=== PATIENT | male | born 1990 | race Caucasian/White ===

== ENCOUNTER 2024-03-06 00:17 | Emergency (ER) | payer OTHER, SELFPAY ==
--- NOTE | 2024-03-06 00:22 | ED.GENADULT ---
HPI - General Adult General Chief complaint: Extremity Injury, Upper Stated complaint: finger injury Time Seen by Provider: 03/06/24 00:21 Source: patient Mode of arrival: Ambulatory Limitations: no limitations History of Present Illness HPI narrative: Patient is a 33-year-old male here for evaluation of a left index finger injury. Patient states he fell while hiking in upon catching himself with the fall sustained an injury to the left index finger. Has had pain and swelling since then. Related Data Allergies Allergy/AdvReac Type Severity Reaction Status Date / Time No Known Drug Allergies Allergy Verified 03/06/24 00:34 Review of Systems Constitutional Constitutional: Reports system reviewed and no additional complaints, except as documented Musculoskeletal Musculoskeletal: Reports system reviewed and no additional complaints, except as documented Integumentary/Breasts Skin/Breast: Reports system reviewed and no additional complaints, except as documented Patient History Social History Smoking Status: Never smoker Exam Initial Vital Signs Initial Vital Signs: Vital Signs Temperature 97.7 F 03/06/24 00:25 Pulse Rate 61 03/06/24 00:25 Respiratory Rate 16 03/06/24 00:25 Blood Pressure 127/63 03/06/24 00:25 Pulse Oximetry 98 03/06/24 00:25 Oxygen Delivery Method Room Air 03/06/24 00:25 Skin Other: Bruising located around the PIP joint of the left index finger. Neuro Sensory Exam: no sensory deficits noted Extrem Other: Swelling to the left index finger Procedures Orthopedic Splinting/Casting Injury #1: Side: left Upper Extremity Injury Location: finger Upper Extremity Immobilizer: aluminum form splint Post splinting neuro exam: no change Post splinting vascular exam: no change Placed by: Provider Course Orders Ordered: ED Orders 03/06/24 00:21 XR finger LT min 2V Stat Vital Signs Vital signs: Vital Signs - 8 hr 03/06/24 00:25 Temperature 97.7 F Pulse Rate 61 Respiratory Rate 16 Blood Pressure 127/63 Pulse Oximetry 98 Oxygen Delivery Method Room Air Medical Decision Making Imaging Data Extremity x-ray #1: Radiologist's Impression: PROCEDURE: XR FINGER LT MIN 2V INDICATIONS: index finger injury TECHNIQUE: AP hand, 2 views of the left index finger(s) acquired. COMPARISON: None. FINDINGS: Bones: Minimally displaced fracture involving the volar base of the left index finger middle phalanx. Remainder of the visualized osseous structures appear intact. Soft tissues: No suspicious soft tissue calcifications. Focal soft tissue swelling of the left 2nd finger proximal interphalangeal joint. IMPRESSION: Minimally displaced fracture involving the volar base of the left index finger middle phalanx. MDM Narrative Medical decision making narrative: Patient does have a fracture noted on the x-ray as described above. He was placed in an aluminum splint. Neurovascularly intact. Discussed expected course over the next several weeks. Discussed return precautions and follow-up instructions. He expressed understanding and agreement. Discharge Plan Departure Patient Disposition: Home Clinical Impression: Finger fracture, left Instructions: DI for Finger Fracture Activity Restrictions/Additional Instructions: You can remove the splint to wash your hands and shower however I recommend that you wear most of the day for the next week. After that you can take it off and do gentle [id number] exercises and bend your finger. Stand Alone Forms: Patient Portal/API
[2024-03-06 00:25] VITALS: BP 127/63; PULSE 61; RESP 16; TEMP 36.5; O2SAT 98; BMI 27.6
== END 2024-03-06 01:13 | disposition home or self-care (01) ==
PROVIDERS: Emergency Provider Emergency Medicine
DX: S62.601A Fracture of unspecified phalanx of left index finger, initial encounter for closed fracture (principal); W18.30XA Fall on same level, unspecified, initial encounter
CPT/HCPCS: 73140; 99283